=== PATIENT | female | born 1995 | race Hispanic/Latino ===

== ENCOUNTER 2018-04-02 23:11 | Observation (INO) | payer MEDICAID ==
[~2018-04-02] VITALS: Ht 170.2 cm; Wt 71.2 kg
[2018-04-02 23:45] LABS: BASOPHILS % (AUTO) 0.2 % (0.0-5.0); EOSINOPHILS % (AUTO) 0.4 % (0.0-8.0); HEMATOCRIT 31.7 % (36-48); LYMPHOCYTES % (AUTO) 24.5 % (21.0-51.0); MEAN CORPUSCULAR HEMOGLOBIN 31.4 pg (27.0-33.0); MEAN CORPUSCULAR VOLUME 89.6 fL (80-100); MONOCYTES % (AUTO) 4.8 % (3.0-13.0); NEUTROPHILS % (AUTO) 70.1 % (40.0-77.0); NUCLEATED RED BLOOD CELLS 0.1 % (0.0-0.19); PLATELET COUNT (AUTO) 174 K/uL (130-400); RED BLOOD CELL COUNT(AUTO) 3.54 MIL/uL (4.00-5.50); RED CELL DISTRIBUTION WIDTH 15.3 % (11.0-15.5); WHITE BLOOD COUNT (AUTO) 4.2 K/uL (4.8-10.8)
[2018-04-02] MEDS ORDERED: METOCLOPRAMIDE 10 MG/2 ML VIAL ONE (23:50)
[2018-04-02] MEDS ORDERED: SODIUM CHLORIDE 0.9% 100 ML IV ONE (23:51)
[2018-04-02] MEDS ORDERED: MEPERIDINE-PF 25 MG/ML SYG ONE (23:51)
[2018-04-03] LABS: ALBUMIN 2.7 g/dL (3.5-5.0); BILIRUBIN,TOTAL 2.4 mg/dL (0.2-1.0); CREATININE 0.6 mg/dL (0.5-1.5); TOTAL PROTEIN, SERUM 6.2 g/dL (6.0-8.3)
[2018-04-03 00:09] LABS: POTASSIUM 2.9 mmol/L (3.5-5.1)
[2018-04-03 00:09] LABS: APPEARANCE,URINE Turbid (CLEAR); BILIRUBIN,URINE Large (NEGATIVE); COLOR,URINE Dark Yellow (YELLOW); GLUCOSE, URINE (UA) 500 mg/dL (NEGATIVE); KETONES,URINE >=80 mg/dL (NEGATIVE); LEUKOCYTE ESTERASE ,URINE Small (NEGATIVE); NITRATE,URINE Positive (NEGATIVE); OCCULT BLOOD,URINE Negative (NEGATIVE); PH,URINE 5.5 (5.0-8.0); PROTEIN,URINE Trace (NEGATIVE)
[2018-04-03 00:26] LABS: BACTERIA,URINE None Seen /HPF (None Seen); MUCUS,URINE Moderate LPF (None Seen); RBC,URINE None Seen /HPF (0-1); SQUAMOUS EPITHELIAL CELL,UR Few /HPF (0-2); YEAST,URINE BUDDING None Seen /HPF (None Seen)
[2018-04-03 00:27] LABS: CALCIUM OXALATE CRYSTALS,UR Few /LPF (None Seen)
[2018-04-03] MEDS ORDERED: POTASSIUM CHLORIDE 20MEQ/100ML 100 ML IV ONE (00:56)
[2018-04-03] MEDS ORDERED: SODIUM CHLORIDE 0.9% 1000ML 1,000 ML IV ONE (01:01)
[2018-04-03] MEDS ORDERED: CEFAZOLIN SODIUM 1 GM VIAL ONE ×2 (01:58→01:59)
[2018-04-03] MEDS ORDERED: SODIUM CHLORIDE 0.9% 100 ML IV ONE (01:59)
[2018-04-03] MEDS ORDERED: PROMETHAZINE HCL 25 MG/ML 1ML AMPULE IM PRN ×2 (02:15→05:30)
[2018-04-03] MEDS ORDERED: ONDANSETRON HCL MDV 20ML 2 MG/ML VIAL IVP PRN (02:15)
[2018-04-03] MEDS ORDERED: DEXTROSE 5 %-0.45 % NACL 1,000 ML IV SCH (02:15)
[2018-04-03 02:30] VITALS: BP 111/67
[2018-04-03] MEDS ORDERED: MEPERIDINE IV PRN (02:30)
[2018-04-03 04:00] VITALS: BP 105/58
[2018-04-03] MEDS ORDERED: MEPERIDINE-PF 50 MG/ML SYG SQ PRN (05:30)
[2018-04-03 07:10] LABS: ALBUMIN 2.1 g/dL (3.5-5.0); BILIRUBIN,DIRECT 1.6 mg/dL (0.0-0.3); BILIRUBIN,TOTAL 1.9 mg/dL (0.2-1.0); TOTAL PROTEIN, SERUM 5.2 g/dL (6.0-8.3)
[2018-04-03 08:08] VITALS: BP 99/58
[2018-04-03] MEDS ORDERED: CEFAZOLIN SODIUM 1 GM VIAL IVP SCH (10:00)
[2018-04-03 11:35] VITALS: BP 95/50
[2018-04-03 15:38] VITALS: BP 104/58
== END 2018-04-03 15:55 | disposition home or self-care (01) ==
LOC: EDH 23:11 → EDHIP 23:12 → WSH 04-03 02:27
DX: O99.612 Diseases of the digestive system complicating pregnancy, second trimester (principal); K80.20 Calculus of gallbladder without cholecystitis without obstruction; O21.9 Vomiting of pregnancy, unspecified; Z3A.18 18 weeks gestation of pregnancy
CPT/HCPCS: 36415 ×2; 76705; 80053; 80076; 81001; 82150 ×2; 83690 ×2; 85025; 96361; 96374; 99285; A4218; G0378 ×17; J0690 ×2; J2175; J2765; J3480; J7030